=== PATIENT | female | born 1990 | race Caucasian/White ===

== ENCOUNTER 2017-06-27 02:37 | Emergency (ER) | payer BC, MEDICAID ==
[~2017-06-27] VITALS: Ht 165.1 cm; Wt 61.2 kg
[~2017-06-27 02:37] MED LIST: ALPR1TAB2; QUET25TA37 PO; ZOLP10TA PO; [UNRECOGNIZED DRUG - CODE]
[2017-06-27 02:46] VITALS: BP 128/91
[2017-06-27 04:50] LABS: Urine Bilirubin Negative (Negative); Urine Blood Negative /uL (Negative); Urine Color Yellow (Yellow); Urine Glucose Normal (Normal); Urine Ketone Negative (Negative); Urine Mucus FEW (None Seen); Urine Nitrite Negative (Negative); Urine RBC 1 /hpf (0 - 4); Urine Squamous Epithelial Cell FEW /hpf (<5); Urine Urobilinogen Normal (Negative); Urine pH 5.5 (5.0-8.0)
== END 2017-06-27 04:35 | disposition left against medical advice (07) ==
LOC: ER 02:37
DX: L02.414 Cutaneous abscess of left upper limb (principal); Z53.21 Procedure and treatment not carried out due to patient leaving prior to being seen by health care provider
CPT/HCPCS: 80307; 81001

== ENCOUNTER 2018-09-21 04:02 | Emergency (ER) | payer MEDICAID ==
[~2018-09-21] VITALS: Ht 170.2 cm; Wt 56.7 kg
[2018-09-21 04:30] VITALS: BP 99/69
== END 2018-09-21 08:22 | disposition left against medical advice (07) ==
LOC: ER 04:11
DX: F11.20 Opioid dependence, uncomplicated (principal); L02.91 Cutaneous abscess, unspecified; Z53.21 Procedure and treatment not carried out due to patient leaving prior to being seen by health care provider